=== PATIENT | male | born 1970 | race Hispanic/Latino ===

== ENCOUNTER 2020-12-25 00:23 | Emergency (ER) | payer SELFPAY ==
[2020-12-25 00:32] VITALS: BP 145/89
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
== END 2020-12-25 01:00 | disposition left against medical advice (07) ==
LOC: ED 00:23
DX: R40.20 Unspecified coma (principal); F17.200 Nicotine dependence, unspecified, uncomplicated; Z79.899 Other long term (current) drug therapy
CPT/HCPCS: 99283